=== PATIENT | female | born 2000 | race Caucasian/White ===

== ENCOUNTER 2021-07-08 07:43 | Emergency (ER) | payer MEDICAID ==
[~2021-07-08] VITALS: Ht 172.7 cm; Wt 81.8 kg
[2021-07-08] MEDS ORDERED: INSU100V SQ (07:45)
[2021-07-08] MEDS ORDERED: INSU100V12 SQ (07:45)
[2021-07-08] MEDS ORDERED: LIDOCAINE/PF 1% 2 ML VIAL IM ONE (09:00)
[2021-07-08] MEDS ORDERED: AZITHROMYCIN 500 MG TABLET PO ONE (09:00)
[2021-07-08] MEDS ORDERED: CefTRIAXone SODIUM 1 GM/VIAL IM ONE (09:00)
[2021-07-08] MEDS ORDERED: INSULIN REGULAR, HUMAN 100 UNITS/ML SQ ONE (09:15)
[2021-07-08 09:36] VITALS: BP 116/75
== END 2021-07-08 09:40 | disposition home or self-care (01) ==
LOC: EMS 07:55
DX: N72 Inflammatory disease of cervix uteri (principal); E11.65 Type 2 diabetes mellitus with hyperglycemia; A64 Unspecified sexually transmitted disease; Z79.899 Other long term (current) drug therapy; Z79.4 Long term (current) use of insulin
CPT/HCPCS: 82962; 96372; 99284; A9575; J0696; J1815; J3490; Q9967